=== PATIENT | female | born 1935 | race Caucasian/White ===

== ENCOUNTER 2019-10-02 08:27 | Outpatient (CLI) | payer MEDICARE, SELFPAY ==
--- NOTE | ~2019-10-02 | DEXA_ITS ---
Bone Density Report Name: Inessa Deras Age: 84 Sex: Female Ethnicity: White Date of : 1935 Indication: postmenopausal; height loss; Referring Provider: KYLE BACK Study: Bone densitometry was performed. Exam Date: October 02, 2019 Accession number: [id number] Bone Density: Region BMD T-score Z-score Classification AP Spine (L1-L4) 0.973 -0.7 2.1 Normal Femoral Neck (Left) 0.729 -1.1 1.4 Osteopenia Total Hip (Left) 0.903 -0.3 1.9 Normal Total Hip Bilateral Avg 0.904 -0.3 1.9 Normal Femoral Neck (Right) 0.785 -0.6 1.9 Normal Total Hip (Right) 0.903 -0.3 1.9 Normal World Health Organization criteria for BMD impression classify patients as: Normal (T-score at or above -1.0), Osteopenia (T-score between -1.0 and -2.5), or Osteoporosis (T-score at or below -2.5). 10-year Fracture Risk(1): Major Osteoporotic Fracture 12% Hip Fracture 2.6% Reported Risk Factors: [place] (), Neck BMD=0.729, BMI=30.6 (1) FRAX(R) Version 3.08. Fracture probability calculated for an untreated patient. Fracture probability may be lower if the patient has received treatment. Previous Exams: Region Exam Age BMD T-score BMD Change BMD Change Date g/cm2 vs Baseline vs Previous AP Spine(L1-L4) 10/02/2019 84 0.973 -0.7 -0.091(-8.6%)# -0.048(-4.7%)* 09/26/2015 80 1.021 -0.2 -0.043(-4.0%)# -0.045(-4.2%)# 08/19/2010 75 1.066 0.2 0.002(0.2%) 0.002(0.2%) 09/26/2007 72 1.064 0.2 Total Hip(Left) 10/02/2019 84 0.903 -0.3 0.000(0.0%)# -0.070(-7.2%)* 09/26/2015 80 0.973 0.3 0.070(7.7%)# 0.064(7.0%)# 08/19/2010 75 0.909 -0.3 0.006(0.7%) 0.006(0.7%) 09/26/2007 72 0.903 -0.3 Total Hip(Right) 10/02/2019 84 0.903 -0.3 0.017(1.9%)# -0.009(-1.0%) 09/26/2015 80 0.911 -0.3 0.026(2.9%)# 0.022(2.4%)# 08/19/2010 75 0.890 -0.4 0.004(0.5%) 0.004(0.5%) 09/26/2007 72 0.886 -0.5 *Denotes significance at 95% confidence level, LSC for AP Spine = 0.022 g/cm2, LSC for Total Hip = 0.027 g/cm2 Clinical Information Provided by Patient: Has used the following medications: Vitamin D, Calcium Patient maximum height was 67.5 Menopause Age: 51 No regular weight bearing exercise Drinks caffeinated beverages Onset of menses at age 14 Number of children 3 Impression: The patient has low bone mass, based on the Left Femoral Neck T-score. The patient has an estimated ten-year
--- NOTE | ~2019-10-02 | MM_ITS ---
EXAMINATION: MM screening song BI w emily HISTORY: Screening TECHNIQUE: Craniocaudal and mediolateral oblique 3-D tomosynthesis images were obtained and synthetic 2-D images were generated. CAD analysis was submitted and interpreted. COMPARISON: Comparison to multiple prior studies sequentially, with oldest reviewed study dated 08/2017. BREAST PARENCHYMAL COMPOSITION: There are scattered areas of fibroglandular density. FINDINGS: There is no evidence of suspicious mass, calcification, or architectural distortion to sugg est malignancy in either breast. There has been no suspicious interval change. IMPRESSION: 1. No mammographic evidence of malignancy. 2. Recommend routine screening mammography in one year. BI-RADS Category 1: Negative Reviewed, dictated and finalized at location A.
== END 2019-10-02 08:28 | disposition home or self-care (01) ==
PROVIDERS: PCP Internal Medicine; Visit Provider Obstetrics & Gynecology Gynecology
DX: Z12.31 Encounter for screening mammogram for malignant neoplasm of breast (principal); Z78.0 Asymptomatic menopausal state; M85.852 Other specified disorders of bone density and structure, left thigh
CPT/HCPCS: 77063; 77067; 77080

== ENCOUNTER 2020-11-29 14:54 | Outpatient (CLI) | payer MEDICARE, SELFPAY ==
--- NOTE | ~2020-11-29 | MM_ITS ---
EXAMINATION: MM screening [facility] BI w emily HISTORY: Screening mammogram TECHNIQUE: Craniocaudal and mediolateral oblique 3-D tomosynthesis images were obtained and synthetic 2-D images were generated. CAD analysis was submitted and interpreted. COMPARISON: 10/02/2019, 09/19/2018, 09/13/2017 BREAST PARENCHYMAL COMPOSITION: There are scattered areas of fibroglandular density. FINDINGS: There is no evidence of suspicious mass, calcification, or architectural distortion to sugg est malignancy in either breast. There has been no suspicious interval change. IMPRESSION: 1. No mammographic evidence of malignancy. 2. Recommend routine screening mammography while the patient remains in good health. BI-RADS Category 1: Negative Reviewed, dictated and finalized at location A. IMPRESSION: 1. No mammographic evidence of malignancy. 2. Recommend routine screening mammography while the patient remains in good he alth. BI-RADS Category 1: Negative
== END 2020-11-29 14:55 | disposition home or self-care (01) ==
LOC: ANHIMG 14:59
PROVIDERS: PCP Internal Medicine; Visit Provider Obstetrics & Gynecology Gynecology
DX: Z12.31 Encounter for screening mammogram for malignant neoplasm of breast (principal)
CPT/HCPCS: 77063; 77067

== ENCOUNTER 2022-01-12 08:54 | Outpatient (CLI) | payer MEDICARE, SELFPAY ==
--- NOTE | ~2022-01-12 | MM_ITS ---
EXAMINATION: MM screening song BI w emily HISTORY: Screening TECHNIQUE: Craniocaudal and mediolateral oblique 3-D tomosynthesis images were obtained and synthetic 2-D images were generated. CAD analysis was submitted and interpreted. COMPARISON: Comparison to multiple prior studies sequentially, with oldest reviewed study dated 03/2016. BREAST PARENCHYMAL COMPOSITION: There are scattered areas of fibroglandular density. FINDINGS: There is a new cluster of punctate calcifications in the lower central aspect of the left b reast posteriorly just anterior to a tissue marker. The right breast is stable without evidence for m alignancy. IMPRESSION: 1. New cluster of punctate left breast calcifications. 2. Magnification views are recommended. BI-RADS Category 0: Incomplete: Needs additional imaging evaluation. Reviewed, dictated and finalized at location A.
== END 2022-01-12 08:55 | disposition home or self-care (01) ==
LOC: ANHIMG 08:57
PROVIDERS: PCP Internal Medicine; Visit Provider Obstetrics & Gynecology Gynecology
DX: Z12.31 Encounter for screening mammogram for malignant neoplasm of breast (principal); R92.8 Other abnormal and inconclusive findings on diagnostic imaging of breast
CPT/HCPCS: 77063; 77067

== ENCOUNTER 2022-02-06 11:32 | Outpatient (CLI) | payer MEDICARE, SELFPAY ==
--- NOTE | ~2022-02-06 | MM_ITS ---
EXAMINATION: MM diagnostic mammo unilat LT HISTORY: Indeterminate left breast calcifications on screening mammogram TECHNIQUE: Magnification views of the left breast were performed using full field digital mammography . CAD analysis was submitted and interpreted. COMPARISON: 01/12/2022, 11/29/2020, 10/02/2019, 09/27/2019 FINDINGS: No suspicious grouped calcifications are identified with magnification views of the left br east. Scattered benign-appearing round and vascular calcifications are noted. No suspicious mass or a rchitectural distortion are identified. IMPRESSION: 1. No mammographic evidence of malignancy. 2. Recommend annual screening mammography while the patient remains in good health. BI-RADS Category 2: Benign finding(s). Reviewed, dictated and finalized at location F. TIC STRAIGHTENING ROLL OPERATOR IMPRESSION: 1. No mammographic evidence of malignancy. 2. Recommend annual screening mammography while the patient remains in good hea lth. BI-RADS Category 2: Benign finding(s).
== END 2022-02-06 11:33 | disposition home or self-care (01) ==
PROVIDERS: PCP Internal Medicine; Visit Provider Obstetrics & Gynecology Gynecology
DX: R92.8 Other abnormal and inconclusive findings on diagnostic imaging of breast (principal)
CPT/HCPCS: 77065

== ENCOUNTER 2022-04-26 16:53 | Inpatient (IN) | payer MEDICARE, SELFPAY ==
[2022-04-26] VITALS (12 sets, daily range): BP systolic 110–134; BP diastolic 63–117; PULSE 84–105; RESP 16–28; TEMP 36.2; O2SAT 96–98
--- NOTE | ~2022-04-26 | XR_ITS ---
EXAMINATION: XR chest 1V portable 04/26/2022 22:14 INDICATION: Weakness. Hypertension. PROCEDURE: AP portable chest COMPARISON: No prior studies for comparison. FINDINGS: The lungs are clear. The cardiomediastinal silhouette is within normal limits. There are no pleural effusions. There is no pneumothorax suspected. IMPRESSION: 1: NO ACUTE CARDIOPULMONARY DISEASE. Reviewed, dictated and finalized at location A. D STACKER
--- NOTE | ~2022-04-26 | CT_ITS ---
EXAMINATION: CT abdomen pelvis wo con DATE: 04/26/2022 22:20 INDICATION: Lower abdominal pain. TECHNIQUE: Computed tomography (CT) of the abdomen and pelvis was performed without intravenous contr ast. The dose-length product was 742.97 mGy-cm. Automated exposure control and iterative reconstructi on technique were employed. COMPARISON: None. FINDINGS: There is right lower lobe atelectasis. Heart size normal. There is atherosclerosis. There i s laxity of the anterior abdominal wall musculature. There is moderate ascites. Gallstones. The splee n, pancreas, adrenal glands are unremarkable. There is a 2.5 cm left renal cyst. There is a smaller r ight renal cyst. Nonobstructive bowel gas pattern. Colonic diverticulosis without evidence for divert iculitis. Enlarged fibroid uterus. No lymphadenopathy. No free air. Mildly distended small bowel with air-fluid levels, most likely ileus. No definite obstruction. IMPRESSION: 1. Moderate ascites. 2: Cholelithiasis. 3: Enlarged fibroid uterus. Reviewed, dictated and finalized at location A. GER ARCHITECTURE
--- NOTE | ~2022-04-26 | US_ITS ---
EXAMINATION: US paracentesis abd w/image DATE: 04/30/2022 12:44 INDICATION: Ascites. Pelvic mass. TECHNIQUE: The procedure and its risks and benefits were discussed with the patient. Potential risks discussed included bleeding and infection. The skin was prepped and draped in sterile fashion. 1% lid ocaine was used for local anesthesia. Under ultrasound guidance, a 5 Fr catheter with trochar was adv anced into the ascites in the lateral right abdomen. Fluid was aspirated into vacuum bottles. The cat heter was removed, and a dressing was applied. There were no immediate complications. FINDINGS: Ultrasound images demonstrate ascites and the catheter within the fluid. IMPRESSION: 1. Successful ultrasound-guided paracentesis yielding 100 mL of cloudy faviola-colored fluid. Reviewed, dictated and finalized at location A. GLE CARRIER IMPRESSION: 1. Successful ultrasound-guided paracentesis yielding 100 mL of cloudy faviola-c olored fluid.
--- NOTE | ~2022-04-26 | MR_ITS ---
EXAMINATION: MR pelvis wo/w con DATE: 04/29/2022 15:24 INDICATION: Pelvic mass TECHNIQUE: Magnetic resonance imaging (MRI) of the pelvis was performed without and with 17 mL Multih ance intravenous contrast. Fullfield sequences of the pelvis included axial and coronal T2-weighted S S FSE, coronal 2D FIESTA, axial T1-weighted FSPGR, axial dual-echo T1-weighted FSPGR and axial T1 emery ghted LAVA. Small field of view sequences included axial, sagittal and coronal T2-weighted FSE cente red on the uterus and adnexa. Postcontrast sequences included a time course axial T1-weighted LAVA w ith fullfield of view of the pelvis. COMPARISON: CT dated 04/26/2022 and ultrasound dated 04/28/2022 FINDINGS: 16.2 x 11.5 x 14.5 cm complex cystic mass in the pelvis which appears contiguous with the uterus as w ell as both ovaries. The lesion is comprised of both T2 hyperintense simple appearing fluid,, heterog eneous dependently layering avascular debris with heterogeneous signal intensity along with enhancing wall and thickened irregular internal septations as well as enhancing small nodular soft tissue comp onents. Small amount of ascites scattered throughout the pelvis and visualized lower abdomen. No evid ent pathologically enlarged pelvic, inguinal or lower abdominal lymphadenopathy. Moderate diverticulo sis along the sigmoid and visualized descending colon. No evident bowel obstruction. Bilateral renal cysts the larger on the left measuring 3.2 cm. No abnormally enhancing bone lesions or other patholog ic marrow replacing process. IMPRESSION: 1. 16.2 x 1.5 x 14.5 cm complex cystic pelvic mass which appears contiguous with the uterus and both the left and right ovaries, which remains concerning for malignancy. Although indeterminate this appe ars most likely to arise either from the right ovary or uterus with likely secondary invasion of the nodule originating organ. 2. Small amount of ascites. Reviewed, dictated and finalized at location A. Y SAW OPERATOR IMPRESSION: 1. 16.2 x 1.5 x 14.5 cm complex cystic pelvic mass which appears contiguous wit h the uterus and both the left and right ovaries, which remains concerning for malignancy. Although indeterminate this appears most likely to arise either fro m the right ovary or uterus with likely secondary invasion of the nodule origin ating organ. 2. Small amount of ascites.
--- NOTE | ~2022-04-26 | US_ITS ---
EXAMINATION: US renal BI DATE: 04/27/2022 15:17 INDICATION: Acute kidney injury TECHNIQUE: Multiple grayscale and Doppler ultrasound images of the kidneys were obtained. COMPARISON: CT from yesterday FINDINGS: The right kidney measures 10.8 x 6.1 x 5.9 cm. The left kidney measures 11.6 x 5.7 x 6.2 cm and contains a 3.6 cm cyst. The kidneys demonstrate normal parenchymal echogenicity. There is no hyd ronephrosis. The bladder is not well demonstrated. There is an approximately 13.6 x 10.0 x 15 cm comp sanjeev cystic and solid pelvic mass with peripheral solid nodular components. There is a small volume of ascites. IMPRESSION: 1. 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 Recommend SPOUT LINER HELPER evaluat ion and consider further evaluation with MRI without and with contrast and/or diagnostic paracentesis . Reviewed, dictated and finalized at location B. EYBALL ASSEMBLER IMPRESSION: 1. 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 Recommend SPOUT LINER HELPER evaluation and consider further evaluation with MRI without and with contrast and/or diagnostic paracentesis.
--- NOTE | ~2022-04-26 | US_ITS ---
US right upper quadrant INDICATION: Elevated liver function tests PROCEDURE: Realtime right upper abdominal ultrasound. COMPARISON: No prior studies for comparison. FINDINGS: The pancreas is normal without focal mass or pancreatic ductal dilation. Liver echotexture is increased, consistent with fatty infiltration. There is ascites. Nodular liver surface, consisten t with cirrhosis. There is normal directional flow in the portal vein. There are gallstones and gallbladder sludge. Common bile duct measures 3 mm. No sonographic Hill' s sign. IMPRESSION: 1: Cirrhosis of the liver with ascites. 2: Cholelithiasis and gallbladder sludge. Reviewed, dictated and finalized at location A. STITCH CUP SETTER
--- NOTE | ~2022-04-26 | US_ITS ---
EXAMINATION: US pelvic complete w TV DATE: 04/28/2022 14:14 INDICATION: Pelvic mass Comparison:CT dated 04/26/2022 TECHNIQUE: Multiple transabdominal and endovaginal sonographic images of the pelvis performed. FINDINGS: The uterus measures 12.5 x 10.2 x 13.8 cm. The uterus is a complex heterogeneous appearance which is mixed solid and cystic. The endometrium is not well delineated. No discrete mass is identif ied. The ovaries are not identified. There is no free fluid in the pelvis. There are no abnormal masses seen on either side. IMPRESSION: 1. Complex markedly heterogeneous mixed solid and cystic appearance to the uterus. Cannot exclude loly comatous degeneration of uterine fibroids. Recommend correlation with MRI of the pelvis with contrast . Reviewed, dictated and finalized at location A. HER WARP IMPRESSION: 1. Complex markedly heterogeneous mixed solid and cystic appearance to the uter us. Cannot exclude sarcomatous degeneration of uterine fibroids. Recommend william elation with MRI of the pelvis with contrast.
--- NOTE | 2022-04-26 16:58 | ECG_ITS ---
Measurements Intervals [place] Rate: 101 P: 75 MD: 139 QRS: 32 QRSD: 86 T: 47 QT: 312 QTc: 406 Interpretive Statements SINUS TACHYCARDIA ABNORMAL RHYTHM ECG NO PREVIOUS ECG AVAILABLE FOR COMPARISON Electronically Signed On 04-26-2022 20:12:41 [employer] by Tonie Longo M.D.
[2022-04-26 17:19] LABS: Basophils Percent Auto 0.3 % (0.2-1.2); Eosinophils Percent Auto 0.2 % (0-4.4); Hematocrit 38.8 % (37.0-47.0); Hemoglobin 13.5 g/dL (12.0-15.0); Immature Granulocyte Absolute 0.06 K/mm3 (0.00-0.031); Immature Granulocyte Percent A 0.5 % (0-0.5); Lymphocytes Percent Auto 13.7 % (18.3-44.2); Mean Corpuscular HGB Conc 34.8 g/dl (32-36); Mean Corpuscular Hemoglobin 30.8 pg (26-34); Mean Corpuscular Volume 88.6 fl (80-100); Mean Platelet Volume 9.1 fl (7.4-10.4); Monocytes Absolute Auto 0.8 K/mm3 (0.1-0.6); Monocytes Percent Auto 6.4 % (2.6-8.5); Neutrophils Absolute Auto 9.2 K/mm3 (1.3-6.7); Neutrophils Percent Auto 78.9 % (45.5-73.1); Platelet Count Result 354 k/mm3 (150-375); Red Blood Count 4.38 M/mm3 (4.2-5.4); Red Cell Distribution Width 12.6 % (11.5-14.5); White Blood Count 11.7 K/mm3 (4.5-10.0)
[2022-04-26 17:32] LABS: Alanine Aminotransferase 46 U/L (6-35); Albumin Level 3.5 g/dL (3.5-5.1); Alkaline Phosphatase 165 U/L (38-126); Anion Gap 9 mmol/L (8-16); Aspartate Amino Transferase 94 U/L (14-36); Blood Urea Nitrogen 53 mg/dL (7-17); Calcium 9.4 mg/dL (8.4-10.2); Carbon Dioxide 26 mmol/L (22-30); Chloride 86 mmol/L (98-107); Estimated CRCL calculation 10 ml/min; Estimated Glomerular Filt Rate 13; Glucose 245 mg/dL (65-110); Potassium 3.5 mmol/L (3.4-5.0); Sodium 121 mmol/L (137-145)
[2022-04-26 21:54] LABS: Appearance Urine Cloudy (Clear); Bilirubin Urine 2+ (Negative); Blood Urine 3+ (Negative); Color Urine Yellow (Yellow); Glucose Urine UA Negative (Negative); Ketones Urine Trace mg/dL (Negative); Leukocyte Esterase Ur Negative LEU/UL (Negative); Nitrate Urine Negative (Negative); Protein Urine 2+ mg/dL (Negative); Specific Grav Ur >= 1.030 (1.001-1.035)
[2022-04-26 21:59] LABS: Amorphous Sediment Urine Few; Bacteria Urine Trace /hpf; Mucus Urine Rare /lpf; RBC Urine 51-75 /hpf (0-2); Squamous Epithelial Cell Urine Moderate /hpf (Few); WBC Urine 21-30 /hpf
[2022-04-26 22:00] LABS: Add Urine Microscopic? YES
[2022-04-26] MEDS: SODIUM CHLORIDE 0.9% IV 2,000 ML 999 ML IV CONT (22:27)
--- NOTE | 2022-04-26 22:27 | ED.GENADULT ---
HPI - General Adult General Chief complaint: Unspecified Stated complaint: Weakness Time Seen by Provider: 04/26/22 20:30 History of Present Illness HPI narrative: This is a 87-year-old female presenting ED with chief complaint of weakness. Starting 2 weeks ago the patient had a diarrheal illness. Since then she has been lethargic and weak. Over the last 2 days the family has become very concerned because she has not been coming down from her room. She lives at home alone and is unable to come down the stairs by herself. EMS had been called to help bring her down. The patient does say that she has had multiple episodes of diarrhea with some lower abdominal pain. This pain comes and goes and she does not currently have pain at this moment. She denies fever, chills, nausea or vomiting. Related Data Allergies Allergy/AdvReac Type Severity Reaction Status Date / Time No Known Allergies Allergy Mild Verified 04/26/22 20:32 COUNT INCLUDES THE [facility] Past Medical History Medical History (Updated 04/27/22 @ 03:15 by Prashant Hart MD) Hypertension Surgical History Surgical History (Updated 04/26/22 @ 22:28 by Prashant Hart MD) H/O tubal ligation Social History Social History (Updated 04/26/22 @ 22:28 by Prashant Hart MD) Social History: Denies use of drugs or alcohol Exam Narrative: APPEARANCE: No apparent distress. Head: atraumatic. EYES: EOMI, NOSE: Atraumatic NECK: Trachea midline RESPIRATORY: No increased rate of breathing clear to auscultation bilaterally CARDIOVASCULAR: tachycardic, ABDOMINAL: abdomen is distended, nontender, no guarding or rebound MUSCULOSKELETAl: No obvious deformities NEURO: Alert. Moving 4/4 extremities SKIN:: Warm, dry. Normal color PSYCHIATRIC: Normal affect Course Vital Signs Vital signs: Vital Signs Temperature 97.2 F L 04/26/22 16:55 Pulse Rate 105 H 04/26/22 16:55 Respiratory Rate 17 04/26/22 16:55 Blood Pressure 127/66 04/26/22 16:55 Pulse Oximetry 98 04/26/22 16:55 Oxygen Delivery Room Air 04/26/22 16:55 Temperature 97.2 F L 04/26/22 16:55 Pulse Rate 91 04/27/22 02:33 Respiratory Rate 21 H 04/27/22 02:33 Blood Pressure 145/75 H 04/27/22 02:33 Pulse Oximetry 99 04/27/22 02:33 Oxygen Delivery Room Air 04/26/22 16:55 Medical Decision Making [facility] Narrative Medical decision making narrative: -Presentation: 87-year-old female presenting with 2 weeks of diarrhea and weakness. -DDX includes but is not limited to: viral syndrome, dehydration, acute kidney injury, diverticulitis, small-bowel obstruction, sepsis -Co-morbidities complicating care: dementia, hypertension -Social determinants of health: Patient lives at home by herself. -External Chart Review: -Hx from independent Sources: daughter -Jessy Frye POA - [phone] -Discussion of Management/Consultants: hospitalist-open -Independent interpretation of studies: white blood cell count is 11.7. Hemoglobin is stable. Metabolic panel showed hyponatremia and hypochloremia as well as an elevated BUN and creatinine. These are consistent with dehydration from decreased oral intake and diarrhea. Potassium is within normal limits. Patient be given a 2 L bolus. She will be started 150 cc/hour on lactated Ringer's. Urinalysis showed 21-30 white blood cells, 51-75 RBC's. patient will be treated for urinary tract infection. patient given 1 g ceftriaxone. Chest x-ray showed no acute cardiopulmonary process. Independent EKG interpretation: Rhythm [sinus], Rate [101], [place] -[normal], [place] -[normal], QRS [narrow], QTC [normal], T waves -[negative for concerning inversions], ST Segments - [Negative for concerning elevations] Final interpretations: sinus tachycardia CT the abdomen pelvis multiple incidental findings but no cause of the patient's symptoms. After fluid resuscitation the patient's vital signs improved. Dx tests considered but not ordered: -Proce
[2022-04-26 22:38] LABS: Influenza A QL RT-PCR Negative (Negative); Influenza B QL RT-PCR Negative (Negative); RSV RNA, RT-PCR Negative (Negative); SARS-CoV-2 RNA PCR Negative
[2022-04-27] VITALS (28 sets, daily range): BP systolic 96–147; BP diastolic 52–75; PULSE 82–95; RESP 13–35; TEMP 36.2–36.6; O2SAT 94–99; BMI 32.6
[2022-04-27] MEDS: LACTATED RINGERS 1,000 ML 150 ML IV CONT (00:07)
--- NOTE | 2022-04-27 00:08 | PC.NURSE ---
No blood cultures needed per MD Hart
[2022-04-27 04:12] LABS: Anion Gap 8 mmol/L (8-16); Blood Urea Nitrogen 51 mg/dL (7-17); Calcium 8.1 mg/dL (8.4-10.2); Carbon Dioxide 24 mmol/L (22-30); Chloride 94 mmol/L (98-107); Estimated CRCL calculation 11 ml/min; Estimated Glomerular Filt Rate 15; Glucose 215 mg/dL (65-110); Potassium 3.2 mmol/L (3.4-5.0); Sodium 126 mmol/L (137-145)
[2022-04-27 04:40] LABS: Magnesium 1.8 mg/dL (1.6-2.3); Phosphorus 3.5 mg/dL (2.5-4.5)
[2022-04-27] MEDS: SODIUM CHLORIDE 0.9% IV 1,000 ML 75 ML IV CONT ×2 (04:44→19:49)
--- NOTE | 2022-04-27 06:33 | ADMGEN ---
This patient, Inessa Deras, was admitted to [facility] Surg Room 323-01. Patient/family oriented to hospital policies and general routines including ID bracelet, bed and alarms, visiting hours, pain management, procedures, bathroom and other care routines, personal items, smoking policy, room service/diet, and visiting hours. Information on how to activate the Rapid Response Team has been discussed. Patient/Family are encouraged to report perceived risks to care and to ask questions if they do not understand what they are told or what they should do.
[2022-04-27] MEDS: POTASSIUM CHLORIDE 20 MEQ TABLET 40 MEQ PO (06:59)
--- NOTE | 2022-04-27 08:18 | PM.IMHP ---
H&P: HPI History of Present Illness Date/Time: 04/27/22 08:18 Chief Complaint: Weakness Narrative: 87yo female with CVA, HTN and HLD who presents with chief complaint of weakness.? Patient was in normal state health until about 2-3 weeks ago she developed food poisoning . She developed diarrheal stools with crampy abdominal pain. Abdominal pain is mostly in the lower quadrants. Crampy abdominal pain better after bowel movement. She did not try anything [id number]. She was having 4-6 stools a day. Stools are almost always liquid. There is no melena or hematochezia. She did not try adding [id number] control the diarrheal stools. She has been having stool incontinence as well. No recent travel. She has city water. No recent antibiotic exposure. She has been eating normally. No nausea or vomiting. Abdominal pain does not worsen after eating. She does not believe that she has lost any weight but is not sure. She does have hypertension and takes hydrochlorothiazide. Has been no complaints of flushing, fever, chills, diaphoresis, rashes, shortness of breath, cough, chest pain, palpitations, dysuria, hematuria or foamy urine. She developed weakness and had trouble coming down stairs. EMS was contacted the patient was brought to the emergency room for evaluation. In the ED, she was hemodynamically stable. She was afebrile. White count was 11.7 K. Sodium 121 with a BUN of 53 and creatinine 3.3. Her glucose was 245. AST and ALT were mildly elevated at 94 and 46 respectively. Urinalysis noted with white cells but negative leukocyte esterase and nitrates. She had moderate squamous epithelial cells. Influenza, RSV and COVID were negative. Chest x-ray was clear. CT of the abdomen pelvis showed moderate ascites, 2.5 cm left renal cyst, mildly distended small bowel with air-fluid levels consistent with ileus and gallstones. CT was reviewed personally. EKG was reviewed personally showing sinus tachycardia rate of 101. she was started on Rocephin and IV fluids. She was admitted for further care. 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 she lives alone. She is . Her daughter is her POA. She is a full code. Smoking status: Never smoker Alcohol intake: never Substance use: never Lack of Transportation: No Lack of Food: Never True Current Housing: I Have Housing Concerned About Future Housing: No Difficulty Paying Gas/Electric Bills: No Difficulty Paying for Meds: No Currently Unemployed: No Education: Grade School Difficulty w/ Childcare or Family Care: No Spiritual care concerns: No Meds Home Medications and Allergies Home Medications Medication Instructions Recorded Confirmed Type hydrochlorothiazide 25 mg tablet 25 mg PO DAILY 04/27/22 04/27/22 History ramipril 5 mg capsule 5 mg PO DAILY 04/27/22 04/27/22 History rosuvastatin 10 mg tablet 10 mg PO DAILY 04/27/22 04/27/22 History Allergies Allergy/AdvReac Type Severity Reaction Status Date / Time No Known Allergies Allergy Mild Verified 04/26/22 20:32 Vital Signs Vital Signs - 24 hr 04/26/22 16:55 04/26/22 20:32 04/26/22 20:31 Temperature 97.2 F L Pulse Rate 105 H 97 95 Respiratory Rate 17 19 Blood Pressure 127/66 Pulse Oximetry 98 98 Oxygen Delivery Room Air
[2022-04-27 08:23] LABS: Sodium 125 mmol/L (137-145)
[2022-04-27] MEDS: CIPROFLOXACIN 400 MG/D5W 200ML 200 ML 200 MG IVPB (10:42)
[2022-04-27 11:23] LABS: Creatinine Urine 52.2 mg/dL; Total Protein Urine Random 42 mg/dL
[2022-04-27 11:26] LABS: Sodium Urine Random 19 meq/L
[2022-04-27 11:26] LABS: Glucose Point of Care 316 mg/dl (65-105)
[2022-04-27 11:51] LABS: Eosinophil Urine None Seen % (None Seen); Urine Eos QC 2nd Tech Confirmed
[2022-04-27] MEDS: INSULIN ASPART (*BKC) 100 UNITS/ML SUB-Q (12:09)
[2022-04-27 12:57] LABS: Sodium 127 mmol/L (137-145)
[2022-04-27 12:59] LABS: Hemoglobin A1C 8.4 % (<5.7)
[2022-04-27 13:03] LABS: Creatine Kinase 101 U/L (30-135)
[2022-04-27 13:06] LABS: Complement C3 136 mg/dL (88-165)
[2022-04-27 14:12] LABS: Glucose Point of Care 171 mg/dl (65-105)
[2022-04-27 14:33] LABS: CRP 18.6 mg/dL (<1.0)
[2022-04-27 14:45] LABS: Hepatitis B Surface Antigen Negative (Negative)
[2022-04-27 14:51] LABS: HAV RESULT Negative (Negative); Hepatitis B Core IgM Result Negative (Negative)
[2022-04-27 15:02] LABS: Hepatitis C Virus Antibody Negative (Negative)
[2022-04-27] MEDS: NYSTATIN 100,000 UNITS/ML SUSP 5 ML ORAL.SUSP PO ×2 (15:16→19:46)
--- NOTE | 2022-04-27 15:49 | WPDGICN ---
Assessment and Plan Assessment and plan (1) Diarrhea: Code(s): R19.7 - Diarrhea, unspecified Status: Acute Assessment and Plan: this began acutely, 3 weeks ago. It seemed to be improving until it relapsed last week and now is worse than ever. She has not yet been able to give us a stool sample for cultures. It seems that this is more soft likely infectious process given the acute onset. If nothing is found with microbiology then she may need a colonoscopy. (2) Acute dehydration: Code(s): E86.0 - Dehydration Status: Acute Assessment and Plan: she has been started on IV fluids. Serum sodium was low at 121 in this is being addressed. (3) Elevated LFTs: Code(s): R79.89 - Other specified abnormal findings of blood chemistry Status: Acute Assessment and Plan: This will be followed. She has no history of liver disease. At her age, the etiology of cirrhosis if present is not important but we will need to address the possible complications. We will check some other parameters like blood ammonia level, ferritin (4) Ascites: Code(s): R18.8 - Other ascites Status: Acute Assessment and Plan: We may want to tap this ascites. She is not symptomatic from it but will do a diagnostic paracentesis on Saturday. GI Consult Note Consult date/time: 04/27/22 15:49 HPI: Inessa Deras is a 87 year old female who was in her usual state of health until about 3 weeks ago. She remembers eating some pork and gravy and thinks that she developed food poisoning. She was having abdominal cramping and diarrhea at that time. Gradually, over the next 2 weeks he improved in fact she almost when out 1 evening when she suddenly was having diarrhea again. Now is worse than ever. She is having uncontrollable watery diarrhea. She has not had a fever. She has not seen blood her stools. She had not been traveling or on recent antibiotics. Sh is e eating little less but has not lost weight. She did vomit once or twice. Denies fever. She has been started on antibiotics because of suspected urinary tract infection. On CT scan she was noted to have some ascites but also an ileus and gallstones. She is not aware of any past history of liver disease or jaundice. She has had no significant problems recently with fluid retention. 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 she lives alone. She is . Her daughter is her POA. She is a full code. Smoking status: Never smoker Alcohol intake: never Substance use: never Lack of Transportation: No Lack of Food: Never True Current Housing: I Have Housing Concerned About Future Housing: No Difficulty Paying Gas/Electric Bills: No Difficulty Paying for Meds: No Currently Unemployed: No Education: Grade School Difficulty w/ Childcare or Family Care: No Spiritual care concerns: No Meds Home Medications and Allergies Home Medications Medication Instructions Recorded Confirmed Type hydrochlorothiazide 25 mg tablet 25 mg PO DAILY 04/27/22 04/27/22 History ramipril 5 mg capsule 5 mg PO DAILY 04/27/22 04/27/22 History rosuvastatin 10 mg tablet 10 mg PO DAILY 04/27/22 04/27/22 History Allergies Allergy/AdvReac Type Severity Reaction Status Date / Time No Known A
[2022-04-27 16:47] LABS: Glucose Point of Care 159 mg/dl (65-105)
[2022-04-27 16:49] LABS: Sodium 128 mmol/L (137-145)
[2022-04-27 20:30] LABS: Sodium 128 mmol/L (137-145)
[2022-04-27 22:16] LABS: Glucose Point of Care 168 mg/dl (65-105)
[2022-04-28 00:55] LABS: Sodium 127 mmol/L (137-145)
[2022-04-28 06:00] VITALS: BP 147/70; PULSE 96; RESP 18; TEMP 35.7; O2SAT 98
[2022-04-28 07:47] LABS: Basophils Percent Auto 0.5 % (0.2-1.2); Eosinophils Absolute Auto 0.1 K/mm3 (0-0.3); Hematocrit 32.8 % (37.0-47.0); Hemoglobin 11.1 g/dL (12.0-15.0); Immature Granulocyte Absolute 0.07 K/mm3 (0.00-0.031); Immature Granulocyte Percent A 1.2 % (0-0.5); Lymphocytes Absolute Auto 0.94 K/mm3 (0.9-3.2); Lymphocytes Percent Auto 16.2 % (18.3-44.2); Mean Corpuscular HGB Conc 33.8 g/dl (32-36); Mean Corpuscular Hemoglobin 30.6 pg (26-34); Mean Corpuscular Volume 90.4 fl (80-100); Monocytes Absolute Auto 0.7 K/mm3 (0.1-0.6); Neutrophils Percent Auto 69.1 % (45.5-73.1); Platelet Count Result 226 k/mm3 (150-375); Red Blood Count 3.63 M/mm3 (4.2-5.4); Red Cell Distribution Width 12.8 % (11.5-14.5); White Blood Count 5.8 K/mm3 (4.5-10.0)
[2022-04-28 07:58] LABS: Alanine Aminotransferase 43 U/L (6-35); Albumin Level 2.9 g/dL (3.5-5.1); Alkaline Phosphatase 122 U/L (38-126); Anion Gap 6 mmol/L (8-16); Aspartate Amino Transferase 65 U/L (14-36); Bilirubin,Total 0.4 mg/dL (0.2-1.3); Blood Urea Nitrogen 43 mg/dL (7-17); Calcium 8.8 mg/dL (8.4-10.2); Carbon Dioxide 27 mmol/L (22-30); Chloride 102 mmol/L (98-107); Estimated CRCL calculation 21 ml/min; Estimated Glomerular Filt Rate 25; Glucose 171 mg/dL (65-110); Magnesium 1.7 mg/dL (1.6-2.3); Phosphorus 2.9 mg/dL (2.5-4.5); Potassium 3.4 mmol/L (3.4-5.0); Sodium 135 mmol/L (137-145)
[2022-04-28 07:58] LABS: Glucose Point of Care 168 mg/dl (65-105)
--- NOTE | 2022-04-28 08:01 | WPDGIPROGNO ---
Progress Note: A&P Assessment and Plan (1) Diarrhea: Code(s): R19.7 - Diarrhea, unspecified Status: Acute Assessment and Plan: this began acutely, 3 weeks ago. It seemed to be improving until it relapsed last week and now is worse than ever. She has not yet been able to give us a stool sample for cultures. It seems that this is more soft likely infectious process given the acute onset. If nothing is found with microbiology then she may need a colonoscopy. Nursing staff is attempting to obtain stool to send for studies but unfortunately she passed urine which was mixed with her stool. We will try again this morning. (2) Acute dehydration: Code(s): E86.0 - Dehydration Status: Acute Assessment and Plan: she has been started on IV fluids. Serum sodium was low at 121 in this is being addressed. Today the sodium is up to 135. BUN is 43, down from 53 on admission. (3) Elevated LFTs: Code(s): R79.89 - Other specified abnormal findings of blood chemistry Status: Acute Assessment and Plan: This will be followed. She has no history of liver disease. At her age, the etiology of cirrhosis if present is not important but we will need to address the possible complications. We will check some other parameters like blood ammonia level, ferritin AST is down to 65 today. Ammonia level is pending. (4) Ascites: Code(s): R18.8 - Other ascites Status: Acute Assessment and Plan: We may want to tap this ascites. She is not symptomatic from it but will do a diagnostic paracentesis on Saturday. Subjective Date/time seen: 04/28/22 08:01 She continues have loose stools. Unfortunately, because they were contaminated once with urine and and also because there was an insufficient quantity that could be recovered from her depends, stool has not yet been sent to the lab for studies. She denies abdominal pain. No further emesis. Exam Const: General: alert Nutritional Appearance: overweight Orientation/consciousness: patient oriented x3 Resp: Auscultation: clear to auscultation bilaterally Cardio: Rhythm: regular rhythm GI: GI Palp: Yes Soft to palpation, No Tenderness to palpation present (GI), Yes No hepatosplenomegaly present, No Hernia present, No Palpable mass present and Yes Ascites present ( Uncertain) Auscultation: normal bowel sounds Neuro: General: patient oriented x3 Objective Data Vital Signs Vital Signs: Vital Signs - 24 hr 04/27/22 09:50 04/27/22 13:45 04/27/22 15:35 Temperature 36.3 C L Pulse Rate 88 Respiratory Rate 14 Blood Pressure 130/64 Pulse Oximetry 98 Oxygen Delivery Room Air Room Air 04/27/22 20:09 04/27/22 20:00 04/28/22 06:00 Temperature 36.2 C L 35.7 C L Pulse Rate 92 96 Respiratory Rate 16 18 Blood Pressure 147/70 H 147/70 H Pulse Oximetry 99 98 Oxygen Delivery Room Air Intake/Output Intake/Output: Intake & Output 04/25/22 04/26/22 04/27/22 04/28/22 23:59 23:59 23:59 23:59 Intake Total 5217 250 Output Total 1900 1650 Balance 3317 -1400 Meds/Results Medications: Active Medications Generic Name Dose Route Start Last Admin Trade Name Freq PRN Reason Stop Dose Admin Dextrose 12.5 gm 04/27/22 09:21 Dextrose 50% 25 Gm/50 Ml Syringe IV PUSH PRN PRN Hypoglycemia Protocol Glucagon 1 mg 04/27/22 09:21 Glucagon For Inj 1 Mg Vial IM PRN PRN Hypoglycemia Protocol Glucose 15 gm 04/27/22 09:21 Glucose Oral Gel 15 Gm Of Glucse In 37.5 Gm Tube PO PRN PRN Hypoglycemia Protocol Hydralazine HCl 10 mg 04/27/22 09:23 Hydralazine Hcl 20 Mg/Ml Vial IV PUSH Q8H PRN Blood Pressure - High Sodium Chloride 1,000 mls @ 75 mls/hr 04/27/22 04:30 04/27/22 19:49 Normal Saline Iv IV CONT 75 mls/hr .[id number] WIL Administration Ceftriaxone Sodium/Dextrose 1 gm in 50 mls @ 100 mls/hr 04/27/22 21:00
--- NOTE | 2022-04-28 08:02 | PM.IMPN ---
Progress Note: A&P Assessment and Plan (1) Acute dehydration: Code(s): E86.0 - Dehydration Status: Acute (2) Acute kidney injury: Code(s): N17.9 - Acute kidney failure, unspecified Status: Acute (3) Diarrhea: Code(s): R19.7 - Diarrhea, unspecified Status: Acute (4) Hyponatremia: Code(s): E87.1 - Hypo-osmolality and hyponatremia Status: Acute (5) Elevated LFTs: Code(s): R79.89 - Other specified abnormal findings of blood chemistry Status: Acute (6) Ascites: Code(s): R18.8 - Other ascites Status: Acute (7) Uterine mass: Code(s): N85.8 - Other specified noninflammatory disorders of uterus Status: Acute (8) Diabetes mellitus: Code(s): E11.9 - Type 2 diabetes mellitus without complications Status: Acute (9) Hypertension: Code(s): I10 - Essential (primary) hypertension Status: Acute Plan Patient has been admitted to the [address] [place] [address] on telemetry. Patient has acute kidney injury related to dehydration. Dehydration is related to her diarrhea. She is on ramipril and hydrochlorothiazide at home which is contributing to her dehydration. Will hold her ramipril and HCTZ at this time. Will monitor her blood pressure and use other agents if she requires. We will have hydralazine available as needed for elevated blood pressure. Her creatinine is already improving with the IV fluids. Will continue IV fluids. Will check renal ultrasound. Will check urine studies. She may have a UTI although urinalysis probably more likely contaminant specimen. Will continue the Rocephin for now but stop if her urine culture is negative. For her diarrhea, consider infectious etiology; consider other etiologies as well such as carcinoid or malignancy. Ascites is unexpected; consider underlying cirrhosis, malignancy or CHF. Consider Echo but felt less likely CHF given clear lung lucas and no pedal edema. Will check stool studies. Will start empiric abx given her severity. GI consult since she may need colonoscopy. She also has hyperglycemia which could be a stress response but would also consider undiagnosed diabetes. Will place on sliding scale protocol. Will check a TSH and A1c. She may have thrush noted and as such will add nystatin. Given her weakness, will start PT and OT. Will hold off on Imodium until such time as we can assure that this is not infectious etiology. Consider Questran. Sodium is low related to the dehydration and hydrochlorothiazide. With IV fluids, sodium is climbing appropriately. Continue serial sodium levels. Further recommendation as course dictates. Will use SCDs for DVT prophylaxis. Elevated liver enzymes probably related to her dehydrated state and the fact she takes Crestor. Will hold Crestor for now and continue to follow. Diarrhea illness may also be contributing to the elevated LFTs. Will check hepatitis panel and abdominal ultrasound to assess liver and ascites to see if this can be tapped. 04/28/22 -- Patient was admitted for acute dehydration. She remains on IV fluids. Creatinine is trending downward as expected. UCx negative - UTI ruled out. Renal US showing mass and Pelvic US ordered and showing complex mixed solid and cystic uterus. MRI recommended. Will hold off on MRI and have PHOTOGRAPHIC HAND DEVELOPER consulted. Also will attempt to get paracentesis for diagnostic testing. Check tumor markers. She also appears to have DM with A1c 8.4. Continue sliding scale. Diabetic diet ordered. Consult drivability technician and DM educator. Sodium better with rehydration. For the diarrhea, CDiff negative. Cultures pending. Related to cystic/solid uterus? CEA elevated. GI following. LFTs coming down. BP well controlled. Subjective Date/time seen: 04/28/22 08:03 Interval history: 87yo female with CVA, HTN and HLD who presents with chief complaint of weakness. Feeling well. Diarhea persistent. No CP or SOB. Had 3-4 BMs today so far.
[2022-04-28] MEDS: NYSTATIN 100,000 UNITS/ML SUSP 5 ML ORAL.SUSP PO ×4 (08:50→20:52)
[2022-04-28] MEDS: CIPROFLOXACIN 400 MG/D5W 200ML 200 ML 200 MG IVPB (08:50)
[2022-04-28 11:07] LABS: Carcinoembryonic Antigen 89.5 ng/mL (0.0-3.0)
[2022-04-28 11:40] LABS: Glucose Point of Care 289 mg/dl (65-105)
[2022-04-28] MEDS: INSULIN ASPART (*BKC) 100 UNITS/ML SUB-Q (12:09)
[2022-04-28] MEDS: SODIUM CHLORIDE 0.9% IV 1,000 ML 75 ML IV CONT (13:02)
[2022-04-28 13:16] LABS: Toxigenic C. Diff NEGATIVE (NEGATIVE)
[2022-04-28 14:00] VITALS: BP 140/62; PULSE 85; RESP 18; TEMP 36.9; O2SAT 98
[2022-04-28 16:56] LABS: Glucose Point of Care 171 mg/dl (65-105)
--- NOTE | 2022-04-28 19:09 | PC.NURSE ---
Pt went for ultrasound today. Pt compliant with care. Pt is A&O4 and participated and contributes in plan of care. Pt is a SBA to the bathroom. Pt monitored for change in status throughout shift.
[2022-04-28 22:00] VITALS: BP 139/62; PULSE 92; RESP 16; TEMP 36.6; O2SAT 94
[2022-04-28 23:06] LABS: Glucose Point of Care 209 mg/dl (65-105)
[2022-04-29] MEDS: SODIUM CHLORIDE 0.9% IV 1,000 ML 75 ML IV CONT (03:23)
[2022-04-29 06:00] VITALS: BP 137/66; PULSE 95; RESP 16; TEMP 36.3; O2SAT 96
[2022-04-29 06:09] LABS: Basophils Percent Auto 0.4 % (0.2-1.2); Eosinophils Absolute Auto 0.1 K/mm3 (0-0.3); Eosinophils Percent Auto 1.7 % (0-4.4); Hematocrit 36.6 % (37.0-47.0); Hemoglobin 12.2 g/dL (12.0-15.0); Immature Granulocyte Absolute 0.09 K/mm3 (0.00-0.031); Immature Granulocyte Percent A 1.2 % (0-0.5); Lymphocytes Absolute Auto 1.85 K/mm3 (0.9-3.2); Lymphocytes Percent Auto 23.9 % (18.3-44.2); Mean Corpuscular HGB Conc 33.3 g/dl (32-36); Mean Corpuscular Hemoglobin 30.7 pg (26-34); Mean Platelet Volume 8.5 fl (7.4-10.4); Monocytes Absolute Auto 0.9 K/mm3 (0.1-0.6); Monocytes Percent Auto 11.2 % (2.6-8.5); Neutrophils Absolute Auto 4.8 K/mm3 (1.3-6.7); Neutrophils Percent Auto 61.6 % (45.5-73.1); Platelet Count Result 251 k/mm3 (150-375); Red Blood Count 3.98 M/mm3 (4.2-5.4); Red Cell Distribution Width 13.1 % (11.5-14.5); White Blood Count 7.7 K/mm3 (4.5-10.0)
[2022-04-29 06:27] LABS: Alanine Aminotransferase 43 U/L (6-35); Albumin Level 3.3 g/dL (3.5-5.1); Alkaline Phosphatase 132 U/L (38-126); Anion Gap 6 mmol/L (8-16); Aspartate Amino Transferase 68 U/L (14-36); Bilirubin,Total 0.4 mg/dL (0.2-1.3); Blood Urea Nitrogen 28 mg/dL (7-17); Calcium 8.9 mg/dL (8.4-10.2); Carbon Dioxide 26 mmol/L (22-30); Chloride 102 mmol/L (98-107); Estimated CRCL calculation 31 ml/min; Estimated Glomerular Filt Rate 39; Glucose 176 mg/dL (65-110); Magnesium 1.4 mg/dL (1.6-2.3); Potassium 3.4 mmol/L (3.4-5.0); Sodium 134 mmol/L (137-145)
[2022-04-29 08:07] LABS: Glucose Point of Care 166 mg/dl (65-105)
[2022-04-29] MEDS: MAGNESIUM SULF 2 GM/WATER 50ML 2 GM/50 ML BAG IVPB (08:32)
[2022-04-29] MEDS: POTASSIUM CHLORIDE 20 MEQ TABLET PO (08:35)
[2022-04-29] MEDS: NYSTATIN 100,000 UNITS/ML SUSP 5 ML ORAL.SUSP PO ×4 (08:35→21:24)
--- NOTE | 2022-04-29 09:01 | PM.GYNPNOP ---
CLIENT SPECIALIST - A/P Assessment and plan (1) Uterine mass: Code(s): N85.8 - Other specified noninflammatory disorders of uterus Status: Acute Assessment and Plan: Her imaging is unclear. Differential of possible degenerating fibroids vs complex ovarian mass. The ascites concerning and GI plans to sample Saturday. I would recommend abdominal pelvic MRI to clarify origin of mass. If ovarian, would need referral once dc to rig hand-onc. However, if uterine fibroids, can observe. Time Spent With Patient Time: Total time spent is greater than 50% in coordination of care (as documented) at patient's floor/unit and/or counseling patient: Time with patient: less than 15 minutes CLIENT SPECIALIST- PN:Subj Post-Op Subjective Date/time seen: 04/29/22 09:01 Interval history: Patient does not recall being told in the past about fibroids in her uterus. No vaginal bleeding. Exam Const: General: comfortable and no acute distress GI: GI Palp: Yes abdominal tenderness (generalized, mild) and No Guarding due to palpation present (GI) Percussion: Yes tympanic to percussion Auscultation: Hypoactive bowel sounds present CLIENT SPECIALIST - PN: Obj Data Vital Signs Vital Signs: Vital Signs - 24 hr 04/28/22 14:00 04/28/22 22:00 04/29/22 06:00 Temperature 98.5 F 98 F 97.4 F L Pulse Rate 85 92 95 Respiratory Rate 18 16 16 Blood Pressure 140/62 139/62 137/66 Pulse Oximetry 98 94 96 Intake/Output Intake/Output: Intake & Output 04/26/22 04/27/22 04/28/22 04/29/22 23:59 23:59 23:59 23:59 Intake Total 5217 1730 1150 Output Total 1900 2500 550 Balance 3317 -770 600 Meds/Results Medications: Active Medications Generic Name Dose Route Start Last Admin Trade Name Freq PRN Reason Stop Dose Admin Dextrose 12.5 gm 04/27/22 09:21 Dextrose 50% 25 Gm/50 Ml Syringe IV PUSH PRN PRN Hypoglycemia Protocol Glucagon 1 mg 04/27/22 09:21 Glucagon For Inj 1 Mg Vial IM PRN PRN Hypoglycemia Protocol Glucose 15 gm 04/27/22 09:21 Glucose Oral Gel 15 Gm Of Glucse In 37.5 Gm Tube PO PRN PRN Hypoglycemia Protocol Hydralazine HCl 10 mg 04/27/22 09:23 Hydralazine Hcl 20 Mg/Ml Vial IV PUSH Q8H PRN Blood Pressure - High Ceftriaxone Sodium/Dextrose 1 gm in 50 mls @ 100 mls/hr 04/27/22 21:00 04/28/22 21:21 Rocephin 1 Gm/D5w 50 Ml IVPB 0 mls/hr Q24H WIL Infusion Dextrose 1,000 mls @ 100 mls/hr 04/27/22 09:21 Dextrose 5% 1,000 Ml IVPB PRN PRN Hypoglycemia Protocol Ciprofloxacin/Dextrose 200 mls @ 200 mls/hr 04/27/22 09:35 04/28/22 08:50 Cipro 400 Mg/D5w 200 Ml IVPB 200 mls/hr DAILY WIL Administration Magnesium Sulfate 2 gm in 50 mls @ 50 mls/hr 04/29/22 08:03 04/29/22 08:32 Magnesium Sulf 2 Gm/Water 50ml IVPB 04/29/22 09:02 50 mls/hr ONCE ONE Administration Insulin Aspart 4 - 8 units 04/27/22 12:00 04/29/22 08:32 Insulin Aspart (*Bkc) 100 Units/Ml SUB-Q Not Given TIDWM [facility] Protocol Nystatin 5 ml 04/27/22 13:00 04/29/22 08:35 Nystatin 100,000 Units/Ml Susp 5 Ml Oral.Susp PO 5 ml QID WIL Administration Radiology Results: ITS Impressions Chest X-Ray 04/26/22 22:17 IMPRESSION: 1: NO ACUTE CARDIOPULMONARY DISEASE. Abdomen/Pelvis CT 04/26/22 22:25 IMPRESSION: 1. Moderate ascites. 2: Cholelithiasis. 3: Enlarged fibroid uterus. Renal Ultrasound 04/27/22 15:18 IMPRESSION: 1. 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 Recommend CLIENT SPECIALIST evaluation and consider further evaluation with MRI without and with contrast and/or diagnostic paracentesis. Upper Quadrant Ultrasound 04/27/22 15:23 IMPRESSION: 1: Cirrhosis of the liver with ascites. 2: Cholelithiasis and gallbladder sludge. Pelvic/Transvag US 04/28/22 14:18 IMPRESSION: 1. Complex markedly heterogeneous mixed solid and cystic appearance to the uterus. Cannot
[2022-04-29] MEDS: CIPROFLOXACIN 400 MG/D5W 200ML 200 ML 200 MG IVPB (09:38)
--- NOTE | 2022-04-29 10:56 | WPDGIPROGNO ---
Progress Note: A&P Assessment and Plan (1) Diarrhea: Code(s): R19.7 - Diarrhea, unspecified Status: Acute Assessment and Plan: this began acutely, 3 weeks ago. It seemed to be improving until it relapsed last week and now is worse than ever. She has not yet been able to give us a stool sample for cultures. It seems that this is more soft likely infectious process given the acute onset. If nothing is found with microbiology then she may need a colonoscopy. Nursing staff is attempting to obtain stool to send for studies but unfortunately she passed urine which was mixed with her stool. We will try again this morning. (2) Acute dehydration: Code(s): E86.0 - Dehydration Status: Acute Assessment and Plan: she has been started on IV fluids. Serum sodium was low at 121 in this is being addressed. Today the sodium is up to 135. BUN is 43, down from 53 on admission. (3) Elevated LFTs: Code(s): R79.89 - Other specified abnormal findings of blood chemistry Status: Acute Assessment and Plan: This will be followed. She has no history of liver disease. At her age, the etiology of cirrhosis if present is not important but we will need to address the possible complications. We will check some other parameters like blood ammonia level, ferritin AST is down to 65 today. Ammonia level is pending. (4) Ascites: Code(s): R18.8 - Other ascites Status: Acute Assessment and Plan: We may want to tap this ascites. She is not symptomatic from it but could do a diagnostic paracentesis on Saturday. Plan colonoscopy to be done tomorrow morning. Subjective Date/time seen: her present illness, the diarrhea began acutely, 3 weeks ago.? It seemed to be improving until it relapsed last week and now is worse than ever.? She has not yet been able to give us a stool sample for cultures. ? It seems that this is more soft likely infectious process given the acute onset.? If nothing is found with microbiology then she may need a colonoscopy. 04/29/22 10:56 so far stool cultures are negative. C diff is negative. I will put her on schedule for colonoscopy tomorrow. Exam Const: General: alert Nutritional Appearance: overweight Orientation/consciousness: patient oriented x3 Resp: Auscultation: clear to auscultation bilaterally Cardio: Rhythm: regular rhythm GI: GI Palp: Yes Soft to palpation, No Tenderness to palpation present (GI), Yes No hepatosplenomegaly present, No Hernia present, No Palpable mass present and Yes Ascites present ( Uncertain) Auscultation: normal bowel sounds Neuro: General: patient oriented x3 Objective Data Vital Signs Vital Signs: Vital Signs - 24 hr 04/28/22 14:00 04/28/22 22:00 04/29/22 06:00 Temperature 36.9 C 36.6 C 36.3 C L Pulse Rate 85 92 95 Respiratory Rate 18 16 16 Blood Pressure 140/62 139/62 137/66 Pulse Oximetry 98 94 96 Oxygen Delivery 04/29/22 08:40 Temperature Pulse Rate Respiratory Rate Blood Pressure Pulse Oximetry Oxygen Delivery Room Air Intake/Output Intake/Output: Intake & Output 04/26/22 04/27/22 04/28/22 04/29/22 23:59 23:59 23:59 23:59 Intake Total 5217 1930 1200 Output Total 1900 2500 550 Balance 3317 -570 650 Meds/Results Medications: Active Medications Generic Name Dose Route Start Last Admin Trade Name Freq PRN Reason Stop Dose Admin Dextrose 12.5 gm 04/27/22 09:21 Dextrose 50% 25 Gm/50 Ml Syringe IV PUSH PRN PRN Hypoglycemia Protocol Glucagon 1 mg 04/27/22 09:21 Glucagon For Inj 1 Mg Vial IM PRN PRN Hypoglycemia Protocol Glucose 15 gm 04/27/22 09:21 Glucose Oral Gel 15 Gm Of Glucse In 37.5 Gm Tube PO PRN PRN Hypoglycemia Protocol Hydralazine HCl 10 mg 04/27/22 09:23 Hydralazine Hcl 20 Mg/Ml Vial IV PUSH Q8H PRN Blood Pressure - High Ceftriaxone Sodium/Dextrose 1 gm in 50 mls
[2022-04-29 11:31] LABS: Glucose Point of Care 345 mg/dl (65-105)
[2022-04-29 11:47] LABS: Ammonia < 9 umol/L (9-30)
[2022-04-29] MEDS: INSULIN ASPART (*BKC) 100 UNITS/ML SUB-Q (11:47)
--- NOTE | 2022-04-29 16:14 | PM.IMPN ---
Progress Note: A&P Assessment and Plan (1) Acute dehydration: Code(s): E86.0 - Dehydration Status: Acute (2) Acute kidney injury: Code(s): N17.9 - Acute kidney failure, unspecified Status: Acute (3) Diarrhea: Code(s): R19.7 - Diarrhea, unspecified Status: Acute (4) Hyponatremia: Code(s): E87.1 - Hypo-osmolality and hyponatremia Status: Acute (5) Elevated LFTs: Code(s): R79.89 - Other specified abnormal findings of blood chemistry Status: Acute (6) Ascites: Code(s): R18.8 - Other ascites Status: Acute (7) Uterine mass: Code(s): N85.8 - Other specified noninflammatory disorders of uterus Status: Acute (8) Diabetes mellitus: Code(s): E11.9 - Type 2 diabetes mellitus without complications Status: Acute (9) Hypertension: Code(s): I10 - Essential (primary) hypertension Status: Acute Plan Patient has been admitted to the [address] [place] [address] on telemetry. Patient has acute kidney injury related to dehydration. Dehydration is related to her diarrhea. She is on ramipril and hydrochlorothiazide at home which is contributing to her dehydration. Will hold her ramipril and HCTZ at this time. Will monitor her blood pressure and use other agents if she requires. We will have hydralazine available as needed for elevated blood pressure. Her creatinine is already improving with the IV fluids. Will continue IV fluids. Will check renal ultrasound. Will check urine studies. She may have a UTI although urinalysis probably more likely contaminant specimen. Will continue the Rocephin for now but stop if her urine culture is negative. For her diarrhea, consider infectious etiology; consider other etiologies as well such as carcinoid or malignancy. Ascites is unexpected; consider underlying cirrhosis, malignancy or CHF. Consider Echo but felt less likely CHF given clear lung lucas and no pedal edema. Will check stool studies. Will start empiric abx given her severity. GI consult since she may need colonoscopy. She also has hyperglycemia which could be a stress response but would also consider undiagnosed diabetes. Will place on sliding scale protocol. Will check a TSH and A1c. She may have thrush noted and as such will add nystatin. Given her weakness, will start PT and OT. Will hold off on Imodium until such time as we can assure that this is not infectious etiology. Consider Questran. Sodium is low related to the dehydration and hydrochlorothiazide. With IV fluids, sodium is climbing appropriately. Continue serial sodium levels. Further recommendation as course dictates. Will use SCDs for DVT prophylaxis. Elevated liver enzymes probably related to her dehydrated state and the fact she takes Crestor. Will hold Crestor for now and continue to follow. Diarrhea illness may also be contributing to the elevated LFTs. Will check hepatitis panel and abdominal ultrasound to assess liver and ascites to see if this can be tapped. 04/28/22 -- Patient was admitted for acute dehydration. She remains on IV fluids. Creatinine is trending downward as expected. UCx negative - UTI ruled out. Renal US showing mass and Pelvic US ordered and showing complex mixed solid and cystic uterus. MRI recommended. Will hold off on MRI and have DULL COAT MILL OPERATOR consulted. Also will attempt to get paracentesis for diagnostic testing. Check tumor markers. She also appears to have DM with A1c 8.4. Continue sliding scale. Diabetic diet ordered. Consult hotel reservationist and DM educator. Sodium better with rehydration. For the diarrhea, CDiff negative. Cultures pending. Related to cystic/solid uterus? CEA elevated. GI following. LFTs coming down. BP well controlled. 04/29/22 -- Diarrhea is better. Colonoscopy recommended but family decline for now. DULL COAT MILL OPERATOR consult appreciated. MRI Pelvis ordered. Follow up on this result. Plan for paracentesis for diagnostic testing. Patient is in agreement for parac
[2022-04-29 16:41] VITALS: BP 133/60; PULSE 90; RESP 18; TEMP 36.6; O2SAT 98
[2022-04-29 17:30] LABS: Glucose Point of Care 118 mg/dl (65-105)
[2022-04-29 21:25] LABS: Glucose Point of Care 189 mg/dl (65-105)
[2022-04-30 06:37] LABS: Basophils Percent Auto 0.5 % (0.2-1.2); Eosinophils Absolute Auto 0.1 K/mm3 (0-0.3); Eosinophils Percent Auto 2.3 % (0-4.4); Hematocrit 32.4 % (37.0-47.0); Hemoglobin 10.6 g/dL (12.0-15.0); Immature Granulocyte Absolute 0.11 K/mm3 (0.00-0.031); Immature Granulocyte Percent A 1.8 % (0-0.5); Lymphocytes Absolute Auto 1.61 K/mm3 (0.9-3.2); Mean Corpuscular HGB Conc 32.7 g/dl (32-36); Mean Corpuscular Hemoglobin 29.6 pg (26-34); Mean Corpuscular Volume 90.5 fl (80-100); Mean Platelet Volume 8.5 fl (7.4-10.4); Monocytes Absolute Auto 0.7 K/mm3 (0.1-0.6); Monocytes Percent Auto 11.8 % (2.6-8.5); Neutrophils Absolute Auto 3.6 K/mm3 (1.3-6.7); Neutrophils Percent Auto 57.6 % (45.5-73.1); Platelet Count Result 211 k/mm3 (150-375); Red Blood Count 3.58 M/mm3 (4.2-5.4); Red Cell Distribution Width 13.2 % (11.5-14.5); White Blood Count 6.2 K/mm3 (4.5-10.0)
[2022-04-30 06:48] LABS: Alanine Aminotransferase 37 U/L (6-35); Albumin Level 2.8 g/dL (3.5-5.1); Alkaline Phosphatase 100 U/L (38-126); Anion Gap 4 mmol/L (8-16); Aspartate Amino Transferase 49 U/L (14-36); Bilirubin,Total 0.4 mg/dL (0.2-1.3); Blood Urea Nitrogen 20 mg/dL (7-17); Calcium 8.5 mg/dL (8.4-10.2); Carbon Dioxide 29 mmol/L (22-30); Chloride 102 mmol/L (98-107); Estimated CRCL calculation 39 ml/min; Estimated Glomerular Filt Rate 53; Glucose 160 mg/dL (65-110); Lactate Dehydrogenase 240 U/L (120-246); Potassium 3.4 mmol/L (3.4-5.0); Sodium 135 mmol/L (137-145)
[2022-04-30 07:00] VITALS: BP 145/68; PULSE 94; RESP 18; TEMP 36.6; O2SAT 97
[2022-04-30 08:03] LABS: Glucose Point of Care 170 mg/dl (65-105)
[2022-04-30] MEDS: CIPROFLOXACIN 400 MG/D5W 200ML 200 ML 100 MG IVPB (08:34)
[2022-04-30 08:49] LABS: INR 1.3; Prothrombin Time 15.8 Seconds (11.1-14.7)
--- NOTE | 2022-04-30 11:22 | PM.GYNPNOP ---
SOLDER CREAM MAKER - A/P Assessment and plan (1) Uterine mass: Code(s): N85.8 - Other specified noninflammatory disorders of uterus Status: Acute Assessment and Plan: MRI was suspicious for the mass arising from the right ovary and invading the uterine wall. It is recommended to proceed with a forest officer oncology referral. Patient prefers [facility] in [place]. Pending medical management this will either be performed as an outpatient or if the patient is not medically stable may need to be transferred. At this point I do not feel a paracentesis is needed and the forest officer-oncologist can decide further management. Message left for Dr. Chou regarding the same. Time Spent With Patient Time: Total time spent is greater than 50% in coordination of care (as documented) at patient's floor/unit and/or counseling patient: Time with patient: 15 - 25 minutes SOLDER CREAM MAKER- PN:Subj Post-Op Subjective Date/time seen: 04/30/22 11:22 Interval history: Patient without new complaints today. She states she has not been having diarrhea but has not had solid stool either. Subjective: patient reports feeling better Exam Const: General: no acute distress, awake and Physically active GI: GI Palp: No abdominal tenderness SOLDER CREAM MAKER - PN: Obj Data Vital Signs Vital Signs: Vital Signs - 24 hr 04/29/22 16:41 04/29/22 20:00 04/30/22 07:00 Temperature 98 F 97.8 F Pulse Rate 90 94 Respiratory Rate 18 18 Blood Pressure 133/60 145/68 H Pulse Oximetry 98 97 Oxygen Delivery Room Air Intake/Output Intake/Output: Intake & Output 04/27/22 04/28/22 04/29/22 04/30/22 23:59 23:59 23:59 23:59 Intake Total 5217 1930 3665 250 Output Total 1900 2500 1850 850 Balance 3317 570 1815 -600 Meds/Results Medications: Active Medications Generic Name Dose Route Start Last Admin Trade Name Freq PRN Reason Stop Dose Admin Dextrose 12.5 gm 04/27/22 09:21 Dextrose 50% 25 Gm/50 Ml Syringe IV PUSH PRN PRN Hypoglycemia Protocol Glucagon 1 mg 04/27/22 09:21 Glucagon For Inj 1 Mg Vial IM PRN PRN Hypoglycemia Protocol Glucose 15 gm 04/27/22 09:21 Glucose Oral Gel 15 Gm Of Glucse In 37.5 Gm Tube PO PRN PRN Hypoglycemia Protocol Hydralazine HCl 10 mg 04/27/22 09:23 Hydralazine Hcl 20 Mg/Ml Vial IV PUSH Q8H PRN Blood Pressure - High Ceftriaxone Sodium/Dextrose 1 gm in 50 mls @ 100 mls/hr 04/27/22 21:00 04/29/22 21:54 Rocephin 1 Gm/D5w 50 Ml IVPB Infused Q24H WIL Infusion Dextrose 1,000 mls @ 100 mls/hr 04/27/22 09:21 Dextrose 5% 1,000 Ml IVPB PRN PRN Hypoglycemia Protocol Ciprofloxacin/Dextrose 200 mls @ 200 mls/hr 04/27/22 09:35 04/30/22 08:34 Cipro 400 Mg/D5w 200 Ml IVPB 100 mls/hr DAILY WIL Administration Insulin Aspart 4 - 8 units 04/27/22 12:00 04/30/22 08:32 Insulin Aspart (*Bkc) 100 Units/Ml SUB-Q Not Given TIDWM WIL Protocol Nystatin 5 ml 04/27/22 13:00 04/29/22 21:24 Nystatin 100,000 Units/Ml Susp 5 Ml Oral.Susp PO 5 ml QID WIL Administration Radiology Results: ITS Impressions Chest X-Ray 04/26/22 22:17 IMPRESSION: 1: NO ACUTE CARDIOPULMONARY DISEASE. Abdomen/Pelvis CT 04/26/22 22:25 IMPRESSION: 1. Moderate ascites. 2: Cholelithiasis. 3: Enlarged fibroid uterus. Renal Ultrasound 04/27/22 15:18 IMPRESSION: 1. 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 Recommend SOLDER CREAM MAKER evaluation and consider further evaluation with MRI without and with contrast and/or diagnostic paracentesis. Upper Quadrant Ultrasound 04/27/22 15:23 IMPRESSION: 1: Cirrhosis of the liver with ascites. 2: Cholelithiasis and gallbladder sludge. Pelvic/Transvag US 04/28/22 14:18 IMPRESSION: 1. Complex markedly heterogeneous mixed solid and cystic appearance to the uterus. Cannot exclude sarcomatous deg
[2022-04-30 11:23] LABS: Glucose Point of Care 194 mg/dl (65-105)
--- NOTE | 2022-04-30 11:50 | PM.IMPN ---
Progress Note: A&P Assessment and Plan (1) Abdominal pain: Code(s): R10.9 - Unspecified abdominal pain Status: Acute (2) Ascites: Code(s): R18.8 - Other ascites Status: Acute (3) Acute dehydration: Code(s): E86.0 - Dehydration Status: Acute (4) Acute kidney injury: Code(s): N17.9 - Acute kidney failure, unspecified Status: Acute (5) Diarrhea: Code(s): R19.7 - Diarrhea, unspecified Status: Acute (6) Hyponatremia: Code(s): E87.1 - Hypo-osmolality and hyponatremia Status: Acute (7) Elevated LFTs: Code(s): R79.89 - Other specified abnormal findings of blood chemistry Status: Acute (8) Uterine mass: Code(s): N85.8 - Other specified noninflammatory disorders of uterus Status: Acute (9) Diabetes mellitus: Code(s): E11.9 - Type 2 diabetes mellitus without complications Status: Acute (10) Hypertension: Code(s): I10 - Essential (primary) hypertension Status: Acute Plan Patient has been admitted to the [address] [place] [address] on telemetry. Patient has acute kidney injury related to dehydration. Dehydration is related to her diarrhea. She is on ramipril and hydrochlorothiazide at home which is contributing to her dehydration. Will hold her ramipril and HCTZ at this time. Will monitor her blood pressure and use other agents if she requires. We will have hydralazine available as needed for elevated blood pressure. Her creatinine is already improving with the IV fluids. Will continue IV fluids. Will check renal ultrasound. Will check urine studies. She may have a UTI although urinalysis probably more likely contaminant specimen. Will continue the Rocephin for now but stop if her urine culture is negative. For her diarrhea, consider infectious etiology; consider other etiologies as well such as carcinoid or malignancy. Ascites is unexpected; consider underlying cirrhosis, malignancy or CHF. Consider Echo but felt less likely CHF given clear lung lucas and no pedal edema. Will check stool studies. Will start empiric abx given her severity. GI consult since she may need colonoscopy. She also has hyperglycemia which could be a stress response but would also consider undiagnosed diabetes. Will place on sliding scale protocol. Will check a TSH and A1c. She may have thrush noted and as such will add nystatin. Given her weakness, will start PT and OT. Will hold off on Imodium until such time as we can assure that this is not infectious etiology. Consider Questran. Sodium is low related to the dehydration and hydrochlorothiazide. With IV fluids, sodium is climbing appropriately. Continue serial sodium levels. Further recommendation as course dictates. Will use SCDs for DVT prophylaxis. Elevated liver enzymes probably related to her dehydrated state and the fact she takes Crestor. Will hold Crestor for now and continue to follow. Diarrhea illness may also be contributing to the elevated LFTs. Will check hepatitis panel and abdominal ultrasound to assess liver and ascites to see if this can be tapped. 04/28/22 -- Patient was admitted for acute dehydration. She remains on IV fluids. Creatinine is trending downward as expected. UCx negative - UTI ruled out. Renal US showing mass and Pelvic US ordered and showing complex mixed solid and cystic uterus. MRI recommended. Will hold off on MRI and have FLYING SQUAD WORKER consulted. Also will attempt to get paracentesis for diagnostic testing. Check tumor markers. She also appears to have DM with A1c 8.4. Continue sliding scale. Diabetic diet ordered. Consult finisher operator and DM educator. Sodium better with rehydration. For the diarrhea, CDiff negative. Cultures pending. Related to cystic/solid uterus? CEA elevated. GI following. LFTs coming down. BP well controlled. 04/29/22 -- Diarrhea is better. Colonoscopy recommended but family decline for now. FLYING SQUAD WORKER consult appreciated. MRI Pelvis ordered. Follow up
[2022-04-30 14:05] LABS: Appearance Peritoneal Fluid Cloudy (Clear); Color Peritoneal Fluid Yellow (Colorless); Nucleated Cells Peritoneal Flu 3720 /uL (0-500); Source Peritoneal Fluid Peritoneal Fluid
[2022-04-30 14:06] LABS: Eosinophils Peritoneal Fluid 1 %; Lymphocytes Peritoneal Fluid 12 %; Macrophages Peritoneal Fluid 33 %; Mesothelial Cells Peritoneal Fluid 44 %; Monocytes Peritoneal Fluid 2 %; Neutrophils Peritoneal Fluid 8 % (0-25); RBC Peritoneal Fluid 3769 /uL (0-100000)
[2022-04-30 14:09] VITALS: BMI 33.6
[2022-04-30] MEDS: POTASSIUM CHLORIDE 20 MEQ TABLET 40 MEQ PO (14:33)
[2022-04-30 15:41] LABS: Albumin 2.4 g/dL (3.8-4.8); Alpha 1 Globulin 0.7 g/dL (0.2-0.3); Beta 1 Globulin 0.4 g/dL (0.4-0.6); Gamma Globulin 0.5 g/dL (0.8-1.7); Protein, Total 5.3 g/dL (6.1-8.1)
[2022-04-30 15:43] VITALS: BP 151/68; PULSE 102; RESP 14; TEMP 36.8; O2SAT 95
[2022-04-30 16:10] LABS: Glucose Point of Care 220 mg/dl (65-105)
[2022-04-30] MEDS: cefTRIAXone 2 GM in SODIUM CHLORIDE 0.9% IV 100 ML 200 ML IVPB (17:16)
[2022-04-30] MEDS: INSULIN ASPART (*BKC) 100 UNITS/ML SUB-Q (17:16)
[2022-04-30] MEDS: ENOXAPARIN 40 MG/0.4 ML SYRINGE SUB-Q (21:06)
[2022-04-30 21:41] LABS: Glucose Point of Care 141 mg/dl (65-105)
[2022-04-30 22:00] VITALS: BP 117/60; PULSE 104; RESP 16; TEMP 36.6; O2SAT 96
[2022-05-01 06:00] VITALS: BP 154/79; PULSE 110; RESP 20; TEMP 36.3; O2SAT 93
[2022-05-01 06:11] LABS: Anti Nuclear Antibody Pattern Nuclear, Speckled; Anti Nuclear Antibody Titer 1:40 (Negative)
[2022-05-01 06:54] LABS: Immunoglobulin A 183 mg/dL (70-400); Immunoglobulin G 578 mg/dL (700-1600); Immunoglobulin M 51 mg/dL (40-230)
[2022-05-01 07:44] LABS: Glucose Point of Care 147 mg/dl (65-105)
[2022-05-01] MEDS: ENOXAPARIN 40 MG/0.4 ML SYRINGE SUB-Q (09:43)
[2022-05-01 11:49] LABS: Glucose Point of Care 216 mg/dl (65-105)
[2022-05-01] MEDS: INSULIN ASPART (*BKC) 100 UNITS/ML SUB-Q (12:21)
--- NOTE | 2022-05-01 12:53 | PM.IMPN ---
Progress Note: A&P Assessment and Plan (1) Abdominal pain: Code(s): R10.9 - Unspecified abdominal pain Status: Acute (2) Ascites: Code(s): R18.8 - Other ascites Status: Acute (3) Acute dehydration: Code(s): E86.0 - Dehydration Status: Acute (4) Acute kidney injury: Code(s): N17.9 - Acute kidney failure, unspecified Status: Acute (5) Diarrhea: Code(s): R19.7 - Diarrhea, unspecified Status: Acute (6) Hyponatremia: Code(s): E87.1 - Hypo-osmolality and hyponatremia Status: Acute (7) Elevated LFTs: Code(s): R79.89 - Other specified abnormal findings of blood chemistry Status: Acute (8) Uterine mass: Code(s): N85.8 - Other specified noninflammatory disorders of uterus Status: Acute (9) Diabetes mellitus: Code(s): E11.9 - Type 2 diabetes mellitus without complications Status: Acute (10) Hypertension: Code(s): I10 - Essential (primary) hypertension Status: Acute Plan Patient has been admitted to the [address] [place] [address] on telemetry. Patient has acute kidney injury related to dehydration. Dehydration is related to her diarrhea. She is on ramipril and hydrochlorothiazide at home which is contributing to her dehydration. Will hold her ramipril and HCTZ at this time. Will monitor her blood pressure and use other agents if she requires. We will have hydralazine available as needed for elevated blood pressure. Her creatinine is already improving with the IV fluids. Will continue IV fluids. Will check renal ultrasound. Will check urine studies. She may have a UTI although urinalysis probably more likely contaminant specimen. Will continue the Rocephin for now but stop if her urine culture is negative. For her diarrhea, consider infectious etiology; consider other etiologies as well such as carcinoid or malignancy. Ascites is unexpected; consider underlying cirrhosis, malignancy or CHF. Consider Echo but felt less likely CHF given clear lung lucas and no pedal edema. Will check stool studies. Will start empiric abx given her severity. GI consult since she may need colonoscopy. She also has hyperglycemia which could be a stress response but would also consider undiagnosed diabetes. Will place on sliding scale protocol. Will check a TSH and A1c. She may have thrush noted and as such will add nystatin. Given her weakness, will start PT and OT. Will hold off on Imodium until such time as we can assure that this is not infectious etiology. Consider Questran. Sodium is low related to the dehydration and hydrochlorothiazide. With IV fluids, sodium is climbing appropriately. Continue serial sodium levels. Further recommendation as course dictates. Will use SCDs for DVT prophylaxis. Elevated liver enzymes probably related to her dehydrated state and the fact she takes Crestor. Will hold Crestor for now and continue to follow. Diarrhea illness may also be contributing to the elevated LFTs. Will check hepatitis panel and abdominal ultrasound to assess liver and ascites to see if this can be tapped. 04/28/22 -- Patient was admitted for acute dehydration. She remains on IV fluids. Creatinine is trending downward as expected. UCx negative - UTI ruled out. Renal US showing mass and Pelvic US ordered and showing complex mixed solid and cystic uterus. MRI recommended. Will hold off on MRI and have COYOTE HUNTER consulted. Also will attempt to get paracentesis for diagnostic testing. Check tumor markers. She also appears to have DM with A1c 8.4. Continue sliding scale. Diabetic diet ordered. Consult director integrated and DM educator. Sodium better with rehydration. For the diarrhea, CDiff negative. Cultures pending. Related to cystic/solid uterus? CEA elevated. GI following. LFTs coming down. BP well controlled. 04/29/22 -- Diarrhea is better. Colonoscopy recommended but family decline for now. COYOTE HUNTER consult appreciated. MRI Pelvis ordered. Follow up o
[2022-05-01 14:00] VITALS: BP 140/90; PULSE 118; RESP 20; TEMP 36.2; O2SAT 95
[2022-05-01] MEDS: metroNIDAZOLE 250 MG TABLET 500 MG PO ×2 (15:00→21:19)
[2022-05-01 16:23] LABS: Glucose Point of Care 162 mg/dl (65-105)
[2022-05-01] MEDS: cefTRIAXone 2 GM in SODIUM CHLORIDE 0.9% IV 100 ML 200 ML IVPB (17:07)
[2022-05-01 20:33] LABS: Glucose Point of Care 224 mg/dl (65-105)
[2022-05-01 22:00] VITALS: BP 138/74; PULSE 89; RESP 20; TEMP 36.3; O2SAT 95
[2022-05-02] MEDS: metroNIDAZOLE 250 MG TABLET 500 MG PO (05:17)
[2022-05-02 06:00] VITALS: BP 144/58; PULSE 89; RESP 20; TEMP 36.3; O2SAT 97
[2022-05-02 07:30] LABS: Basophils Percent Auto 0.5 % (0.2-1.2); Eosinophils Absolute Auto 0.1 K/mm3 (0-0.3); Eosinophils Percent Auto 2.4 % (0-4.4); Hemoglobin 10.7 g/dL (12.0-15.0); Immature Granulocyte Absolute 0.07 K/mm3 (0.00-0.031); Immature Granulocyte Percent A 1.2 % (0-0.5); Lymphocytes Absolute Auto 1.49 K/mm3 (0.9-3.2); Mean Corpuscular HGB Conc 32.4 g/dl (32-36); Mean Corpuscular Hemoglobin 29.7 pg (26-34); Mean Corpuscular Volume 91.7 fl (80-100); Mean Platelet Volume 8.6 fl (7.4-10.4); Monocytes Absolute Auto 0.8 K/mm3 (0.1-0.6); Monocytes Percent Auto 12.6 % (2.6-8.5); Neutrophils Absolute Auto 3.5 K/mm3 (1.3-6.7); Neutrophils Percent Auto 58.3 % (45.5-73.1); Platelet Count Result 224 k/mm3 (150-375); Red Cell Distribution Width 13.2 % (11.5-14.5)
[2022-05-02 07:56] LABS: Alanine Aminotransferase 38 U/L (6-35); Alkaline Phosphatase 93 U/L (38-126); Anion Gap 5 mmol/L (8-16); Aspartate Amino Transferase 43 U/L (14-36); Bilirubin,Total 0.4 mg/dL (0.2-1.3); Blood Urea Nitrogen 12 mg/dL (7-17); Calcium 8.5 mg/dL (8.4-10.2); Carbon Dioxide 28 mmol/L (22-30); Chloride 101 mmol/L (98-107); Estimated CRCL calculation 48 ml/min; Estimated Glomerular Filt Rate > 60; Glucose 161 mg/dL (65-110); Magnesium 1.3 mg/dL (1.6-2.3); Phosphorus 2.9 mg/dL (2.5-4.5); Potassium 3.5 mmol/L (3.4-5.0); Sodium 134 mmol/L (137-145)
[2022-05-02 08:23] LABS: Glucose Point of Care 168 mg/dl (65-105)
[2022-05-02] MEDS: ENOXAPARIN 40 MG/0.4 ML SYRINGE SUB-Q (08:30)
[2022-05-02 11:59] LABS: Glucose Point of Care 217 mg/dl (65-105)
[2022-05-02] MEDS: INSULIN ASPART (*BKC) 100 UNITS/ML SUB-Q (12:42)
[2022-05-02] MEDS: LOPERAMIDE HCL 2 MG CAPSULE 4 MG PO ×2 (12:44→17:28)
[2022-05-02 14:00] VITALS: BP 133/74; PULSE 90; RESP 18; TEMP 36.2; O2SAT 99
[2022-05-02 14:37] VITALS: BMI 33.1
--- NOTE | 2022-05-02 15:07 | PCOTNOTE ---
Patient refused treatment this session due to having increased pain and loose stools due to an IV that was given.
--- NOTE | 2022-05-02 16:07 | PM.IMPN ---
Progress Note: A&P Assessment and Plan (1) Abdominal pain: Code(s): R10.9 - Unspecified abdominal pain Status: Acute (2) Ascites: Code(s): R18.8 - Other ascites Status: Acute (3) Acute dehydration: Code(s): E86.0 - Dehydration Status: Acute (4) Acute kidney injury: Code(s): N17.9 - Acute kidney failure, unspecified Status: Acute (5) Diarrhea: Code(s): R19.7 - Diarrhea, unspecified Status: Acute (6) Hyponatremia: Code(s): E87.1 - Hypo-osmolality and hyponatremia Status: Acute (7) Elevated LFTs: Code(s): R79.89 - Other specified abnormal findings of blood chemistry Status: Acute (8) Uterine mass: Code(s): N85.8 - Other specified noninflammatory disorders of uterus Status: Acute (9) Diabetes mellitus: Code(s): E11.9 - Type 2 diabetes mellitus without complications Status: Acute (10) Hypertension: Code(s): I10 - Essential (primary) hypertension Status: Acute Plan Patient has been admitted to the [address] [place] [address] on telemetry. Patient has acute kidney injury related to dehydration. Dehydration is related to her diarrhea. She is on ramipril and hydrochlorothiazide at home which is contributing to her dehydration. Will hold her ramipril and HCTZ at this time. Will monitor her blood pressure and use other agents if she requires. We will have hydralazine available as needed for elevated blood pressure. Her creatinine is already improving with the IV fluids. Will continue IV fluids. Will check renal ultrasound. Will check urine studies. She may have a UTI although urinalysis probably more likely contaminant specimen. Will continue the Rocephin for now but stop if her urine culture is negative. For her diarrhea, consider infectious etiology; consider other etiologies as well such as carcinoid or malignancy. Ascites is unexpected; consider underlying cirrhosis, malignancy or CHF. Will check hepatitis panel and abdominal ultrasound to assess liver and ascites to see if this can be tapped. 04/28/22 -- Patient was admitted for acute dehydration. She remains on IV fluids. Creatinine is trending downward as expected. UCx negative - UTI ruled out. Renal US showing mass and Pelvic US ordered and showing complex mixed solid and cystic uterus. MRI recommended. Will hold off on MRI and have BUSINESS MAIL ENTRY CLERK consulted. Also will attempt to get paracentesis for diagnostic testing. Check tumor markers. She also appears to have DM with A1c 8.4. Continue sliding scale. Diabetic diet ordered. Consult fly setter and DM educator. Sodium better with rehydration. For the diarrhea, CDiff negative. Cultures pending. Related to cystic/solid uterus? CEA elevated. GI following. LFTs coming down. BP well controlled. 04/29/22 -- Diarrhea is better. Colonoscopy recommended but family decline for now. BUSINESS MAIL ENTRY CLERK consult appreciated. MRI Pelvis ordered. Follow up on this result. Plan for paracentesis for diagnostic testing. Patient is in agreement for paracentesis. Continue IV abx until stool culture returns. Replace electrolytes. Cr close to normal now. Okay to stop IV fluids. 04/30/22 -- Diarrhea appears to have resolved. Abdominal pain however seems to be worsened today with concerns for peritoneal signs. Spoke with manufacturing mechanic and appreciate their input. We reviewed the pelvic MRI. Plan is for patient to follow-up with manufacturing mechanic Oncology for further evaluation and possible treatment. We will proceed with the paracentesis today given the exam findings. Her white count remains normal. She remains on IV antibiotics. Glucose is reasonably well controlled today. Sodium much better with IV hydration. Renal function essentially normal now. LFTs have almost returned to normal as well. Follow up on stool studies. Follow-up on paracentesis findings. 05/01/22 -- Still with peritoneal signs. Peritoneal fluid with 3720 cells with 77% Macrophages and mesothelial cells. Neoplastic cell
[2022-05-02 17:00] LABS: Glucose Point of Care 156 mg/dl (65-105)
[2022-05-02] MEDS: SACCHAROMYCES BOULARDII 250 MG CAPSULE PO (17:28)
[2022-05-02 20:37] LABS: CA 19-9 26894 U/mL (<34)
[2022-05-02 20:41] LABS: HCG Tumor Marker <3 mIU/mL (***)
[2022-05-02 20:46] LABS: Creatinine, Random Urine 51 mg/dL (20-275); Total Protein/Creatinine Ratio 980 mg/g creat (24-184)
[2022-05-02 22:00] VITALS: BP 142/66; PULSE 86; RESP 18; TEMP 36.7; O2SAT 97
[2022-05-02 22:22] LABS: Glucose Point of Care 189 mg/dl (65-105)
[2022-05-03 04:18] LABS: CA-125 2851 U/mL (<35)
[2022-05-03 04:31] LABS: Glucose Peritoneal Fluid 150 mg/dL; LDH Peritoneal Fluid 465 U/L (<63); Total Protein Peritoneal Fluid 3.1 g/dL
[2022-05-03 06:00] VITALS: BP 127/65; PULSE 84; RESP 16; TEMP 36.4; O2SAT 97
[2022-05-03 07:17] LABS: Hematocrit 32.3 % (37.0-47.0); Hemoglobin 10.6 g/dL (12.0-15.0); Mean Corpuscular HGB Conc 32.8 g/dl (32-36); Mean Corpuscular Hemoglobin 29.9 pg (26-34); Mean Corpuscular Volume 91.2 fl (80-100); Mean Platelet Volume 8.6 fl (7.4-10.4); Platelet Count Result 228 k/mm3 (150-375); Red Blood Count 3.54 M/mm3 (4.2-5.4); Red Cell Distribution Width 13.2 % (11.5-14.5); White Blood Count 6.1 K/mm3 (4.5-10.0)
[2022-05-03 07:30] LABS: Anion Gap 4 mmol/L (8-16); Blood Urea Nitrogen 10 mg/dL (7-17); Calcium 8.6 mg/dL (8.4-10.2); Carbon Dioxide 28 mmol/L (22-30); Chloride 105 mmol/L (98-107); Estimated CRCL calculation 55 ml/min; Estimated Glomerular Filt Rate > 60; Glucose 147 mg/dL (65-110); Potassium 3.6 mmol/L (3.4-5.0); Sodium 137 mmol/L (137-145)
[2022-05-03 07:59] LABS: Glucose Point of Care 138 mg/dl (65-105)
[2022-05-03 09:20] LABS: Albumin Peritoneal Fluid 1.8 g/dL
[2022-05-03] MEDS: LOPERAMIDE HCL 2 MG CAPSULE 4 MG PO ×2 (09:32→12:18)
[2022-05-03] MEDS: SACCHAROMYCES BOULARDII 250 MG CAPSULE PO ×2 (09:32→12:18)
[2022-05-03] MEDS: ENOXAPARIN 40 MG/0.4 ML SYRINGE SUB-Q (09:32)
[2022-05-03 11:59] LABS: Glucose Point of Care 163 mg/dl (65-105)
--- NOTE | 2022-05-03 12:30 | PM.DS ---
DS: Admitting Diagnosis Discharge Date 05/03/2022 Admitting Diagnosis WEAKNESS DS: Discharge Diagnosis Discharge Diagnosis (1) Abdominal pain: Code(s): R10.9 - Unspecified abdominal pain Status: Acute Assessment and Plan: See below for details (2) Ascites: Code(s): R18.8 - Other ascites Status: Acute (3) Acute dehydration: Code(s): E86.0 - Dehydration Status: Acute (4) Acute kidney injury: Code(s): N17.9 - Acute kidney failure, unspecified Status: Acute (5) Diarrhea: Code(s): R19.7 - Diarrhea, unspecified Status: Acute (6) Hyponatremia: Code(s): E87.1 - Hypo-osmolality and hyponatremia Status: Acute (7) Elevated LFTs: Code(s): R79.89 - Other specified abnormal findings of blood chemistry Status: Acute (8) Uterine mass: Code(s): N85.8 - Other specified noninflammatory disorders of uterus Status: Acute (9) Diabetes mellitus: Code(s): E11.9 - Type 2 diabetes mellitus without complications Status: Acute (10) Hypertension: Code(s): I10 - Essential (primary) hypertension Status: Acute Plan Patient has been admitted to the [address] [place] [address] on telemetry. Patient has acute kidney injury related to dehydration. Dehydration is related to her diarrhea. She is on ramipril and hydrochlorothiazide at home which is contributing to her dehydration. Will hold her ramipril and HCTZ at this time. Will monitor her blood pressure and use other agents if she requires. We will have hydralazine available as needed for elevated blood pressure. Her creatinine is already improving with the IV fluids. Will continue IV fluids. Will check renal ultrasound. Will check urine studies. She may have a UTI although urinalysis probably more likely contaminant specimen. Will continue the Rocephin for now but stop if her urine culture is negative. For her diarrhea, consider infectious etiology; consider other etiologies as well such as carcinoid or malignancy. Ascites is unexpected; consider underlying cirrhosis, malignancy or CHF. Will check hepatitis panel and abdominal ultrasound to assess liver and ascites to see if this can be tapped. 04/28/22 -- Patient was admitted for acute dehydration. She remains on IV fluids. Creatinine is trending downward as expected. UCx negative - UTI ruled out. Renal US showing mass and Pelvic US ordered and showing complex mixed solid and cystic uterus. MRI recommended. Will hold off on MRI and have INDUSTRIAL CONVEYOR BELT REPAIRER consulted. Also will attempt to get paracentesis for diagnostic testing. Check tumor markers. She also appears to have DM with A1c 8.4. Continue sliding scale. Diabetic diet ordered. Consult engraving plate maker and DM educator. Sodium better with rehydration. For the diarrhea, CDiff negative. Cultures pending. Related to cystic/solid uterus? CEA elevated. GI following. LFTs coming down. BP well controlled. 04/29/22 -- Diarrhea is better. Colonoscopy recommended but family decline for now. INDUSTRIAL CONVEYOR BELT REPAIRER consult appreciated. MRI Pelvis ordered. Follow up on this result. Plan for paracentesis for diagnostic testing. Patient is in agreement for paracentesis. Continue IV abx until stool culture returns. Replace electrolytes. Cr close to normal now. Okay to stop IV fluids. 04/30/22 -- Diarrhea appears to have resolved. Abdominal pain however seems to be worsened today with concerns for peritoneal signs. Spoke with blemish remover and appreciate their input. We reviewed the pelvic MRI. Plan is for patient to follow-up with blemish remover Oncology for further evaluation and possible treatment. We will proceed with the paracentesis today given the exam findings. Her white count remains normal. She remains on IV antibiotics. Glucose is reasonably well controlled today. Sodium much better with IV hydration. Renal function essentially normal now. LFTs have almost returned to normal as well. Follow up on stool studies. Follow-up on paracentesis fin
--- NOTE | 2022-05-07 06:45 | PC.NURSE ---
Outpatient initial DSMT started for pt. [facility] and to Dr. Collier.
== END 2022-05-03 15:50 | disposition home or self-care (01) | DRG 683 ==
LOC: ANHED 04-27 03:15 → ANH3MEDSUR 04-27 05:23
PROVIDERS: Emergency Medicine; Internal Medicine; Internal Medicine Gastroenterology; Admitting Provider Internal Medicine; Emergency Provider Emergency Medicine; PCP Internal Medicine; Visit Provider Family Medicine
DX: N17.9 Acute kidney failure, unspecified (principal); E87.1 Hypo-osmolality and hyponatremia; R18.8 Other ascites; E86.0 Dehydration; Z20.822 Contact with and (suspected) exposure to COVID-19; I10 Essential (primary) hypertension; E11.65 Type 2 diabetes mellitus with hyperglycemia; E78.5 Hyperlipidemia, unspecified; N85.8 Other specified noninflammatory disorders of uterus; R19.7 Diarrhea, unspecified; Z53.8 Procedure and treatment not carried out for other reasons; Z86.73 Personal history of transient ischemic attack (TIA), and cerebral infarction without residual deficits
CPT/HCPCS: 36415; 49083; 71045; 72197; 74176; 76705; 76775; 76830; 76856; 80048; 80053; 80074; 81001; 82042; 82140; 82378; 82550; 82570; 82784; 82945; 82948; 83036; 83615; 83735; 84100; 84155; 84156; 84157; 84165; 84166; 84295; 84300; 84443; 84702; 85025; 85027; 85610; 85730; 85999; 86038; 86039; 86140; 86160; 86301; 86304; 86334; 86335; 87045; 87070; 87075; 87086; 87177; 87205; 87209; 87269; 87272; 87427; 87493; 87637; 88104; 88108; 88305; 89051; 89055; 93005; 96361; 96365; 97110; 97116; 97161; 97166; 97530; 97535; 99285; A9270; A9577; J0696; J0744; J1650; J1815; J3475; J7030; J7120

== ENCOUNTER 2022-06-13 10:27 | Outpatient (CLI) | payer MEDICARE, SELFPAY ==
[2022-06-13 18:40] LABS: Alanine Aminotransferase 16 U/L (6-35); Albumin Level 2.8 g/dL (3.5-5.1); Alkaline Phosphatase 129 U/L (38-126); Anion Gap 8 mmol/L (8-16); Aspartate Amino Transferase 27 U/L (14-36); Bilirubin,Total 0.6 mg/dL (0.2-1.3); Blood Urea Nitrogen 16 mg/dL (7-17); Calcium 9.4 mg/dL (8.4-10.2); Carbon Dioxide 25 mmol/L (22-30); Chloride 94 mmol/L (98-107); Estimated Glomerular Filt Rate 47; Glucose 219 mg/dL (65-110); Potassium 4.5 mmol/L (3.4-5.0); Sodium 127 mmol/L (137-145)
[2022-06-13 18:42] LABS: Basophils Absolute Auto 0.1 K/mm3 (0.0-0.1); Basophils Percent Auto 0.5 % (0.2-1.2); Eosinophils Absolute Auto 0.1 K/mm3 (0-0.3); Eosinophils Percent Auto 0.5 % (0-4.4); Hematocrit 39.1 % (37.0-47.0); Immature Granulocyte Absolute 0.05 K/mm3 (0.00-0.031); Immature Granulocyte Percent A 0.5 % (0-0.5); Lymphocytes Absolute Auto 1.73 K/mm3 (0.9-3.2); Lymphocytes Percent Auto 17.2 % (18.3-44.2); Mean Corpuscular HGB Conc 30.7 g/dl (32-36); Mean Corpuscular Hemoglobin 28.7 pg (26-34); Mean Corpuscular Volume 93.5 fl (80-100); Mean Platelet Volume 8.3 fl (7.4-10.4); Monocytes Absolute Auto 0.9 K/mm3 (0.1-0.6); Monocytes Percent Auto 9.4 % (2.6-8.5); Neutrophils Absolute Auto 7.2 K/mm3 (1.3-6.7); Neutrophils Percent Auto 71.9 % (45.5-73.1); Platelet Count Result 600 k/mm3 (150-375); Red Blood Count 4.18 M/mm3 (4.2-5.4)
== END 2022-06-13 10:28 | disposition home or self-care (01) ==
PROVIDERS: PCP Internal Medicine; Visit Provider Nurse Practitioner
DX: E11.9 Type 2 diabetes mellitus without complications (principal)
CPT/HCPCS: 36415; 80053; 83036; 85025